=== PATIENT | male | born 1995 | race Caucasian/White ===

== ENCOUNTER 2016-07-24 22:46 | Emergency (ER) | payer SELFPAY ==
[~2016-07-24] VITALS: Ht 182.9 cm; Wt 106.9 kg
[~2016-07-24 22:46] MED LIST: BACTRIM,SEPT1 TABLET PO; BENADRYL50 MG PO; CATAPRES0.1 MG PO; CIPROFLOXACIN H10 ML LEFT EYE; CLEOCIN150 MG PO; CLEOCIN300 MG PO; CLONIDINE HCL0.1 MG PO; DOXYCYCLINE HY100 MG PO; ENDOCET 5-3251 EACH PO; FLEXERIL5 MG PO; HYDROXYZINE PAM25 MG PO; IBUPROFEN800 MG PO; KEFLEX500 MG PO; LORATADINE10 M2 PO; MUPIROCIN22 GM TP; NAPHCON-A EYE D15 ML BOTH EYES; NAPROSYN500 MG PO; NICOTINE PATCH1 EAC2 TD; NOHOMEMEDS; PEN-VEE K,VEET500 MG PO; PEPCID20 MG PO; PERCOCET 5/31 TABLET PO; PREDNISONE20 MG PO; ULTRAM50 MG PO; VALTREX1000 MG PO; VYVANSE50 MG PO
[2016-07-24 22:55] VITALS: BP 143/79
[2016-07-24] MEDS ORDERED: TOBREX5 ML BOTH EYES (23:27)
== END 2016-07-24 23:54 | disposition home or self-care (01) ==
LOC: RME 22:46 → EME 22:46 → RME 23:54
DX: H10.9 Unspecified conjunctivitis (principal)
CPT/HCPCS: 99281; 99283

== ENCOUNTER 2016-09-18 13:56 | Emergency (ER) | payer SELFPAY ==
[~2016-09-18] VITALS: Ht 182.9 cm; Wt 108.8 kg
[~2016-09-18 13:56] MED LIST changes: +TOBREX5 ML BOTH EYES
[2016-09-18] MEDS ORDERED: AMOXICILLIN875 MG PO (14:58)
[2016-09-18 15:13] VITALS: BP 135/77
== END 2016-09-18 15:17 | disposition home or self-care (01) ==
LOC: EME 13:56
DX: K08.89 Other specified disorders of teeth and supporting structures (principal); J02.9 Acute pharyngitis, unspecified; H66.93 Otitis media, unspecified, bilateral; Z87.891 Personal history of nicotine dependence
CPT/HCPCS: 99281; 99284

== ENCOUNTER 2016-09-20 14:30 | Emergency (ER) | payer SELFPAY ==
[~2016-09-20] VITALS: Ht 182.9 cm; Wt 108.0 kg
[~2016-09-20 14:30] MED LIST changes: +AMOXICILLIN875 MG PO
[2016-09-20] MEDS ORDERED: ZITHROMAX500 MG PO (18:35)
[2016-09-20] MEDS ORDERED: PROVENTIL,2.5 MG/3 M IH (18:35)
[2016-09-20] MEDS ORDERED: PREDNISONE20 MG PO (18:35)
[2016-09-20 19:13] VITALS: BP 122/70
== END 2016-09-20 19:14 | disposition home or self-care (01) ==
LOC: EME 14:30 → EXP 14:30
DX: J02.0 Streptococcal pharyngitis (principal); J20.9 Acute bronchitis, unspecified; R42 Dizziness and giddiness; F17.200 Nicotine dependence, unspecified, uncomplicated; Z71.6 Tobacco abuse counseling; Z86.14 Personal history of Methicillin resistant Staphylococcus aureus infection
CPT/HCPCS: 94640; 99281; 99283; J7512

== ENCOUNTER 2016-12-27 05:52 | Emergency (ER) | payer SELFPAY ==
[~2016-12-27] VITALS: Ht 182.9 cm; Wt 113.4 kg
[~2016-12-27 05:52] MED LIST changes: +PROVENTIL,2.5 MG/3 M IH; +ZITHROMAX500 MG PO
[2016-12-27 06:39] LABS: EOSINOPHIL (%) 3.8 % (0-5); EOSINOPHIL COUNT 0.3 K/uL (0-0.3); HEMATOCRIT 44.9 % (38.0-50.0); IMMATURE GRANULOCYTE (%) 0.2 % (0.0-0.7); INSTRUMENT ABS NEUTROPHIL CT 3.5 K/uL; LYMPHOCYTE COUNT 2.3 K/uL (1.0-2.8); MCH 29.9 PG (29.0-34.0); MCHC 33.9 G/DL (30.0-36.0); MCV 88.2 FL (86-99); MONOCYTE (%) 8.1 % (3-12); MONOCYTE COUNT 0.5 K/uL (0-0.8); NEUTROPHIL (%) 52.9 % (45-76); NEUTROPHIL COUNT 3.5 K/uL (1.8-6.4); PLATELET COUNT 207 K/uL (156-360); RBC DIS.WIDTH-CV 12.7 % (11.8-14.6); RBC DIS.WIDTH-SD 40.9 % (39-53); RED BLOOD COUNT 5.09 M/uL (4.00-5.50); WHITE BLOOD COUNT 6.7 K/uL (4.1-10.2)
[2016-12-27 07:09] LABS: ANION GAP 7 MEQ/L (2-14); CHLORIDE 107 MEQ/L (99-109); GFR ESTIMATE (CALCULATED) > 59 mL/min/; GLUCOSE 105 mg/dL (70-99); SAMPLE HEMOLYSIS CHECK 0; SAMPLE ICTERIC CHECK 0; SAMPLE LIPEMIA CHECK 0; SODIUM 139 MEQ/L (136-147); UREA NITROGEN (BUN) 16 mg/dL (9-23)
[2016-12-27] MEDS ORDERED: ZOFRAN ODT4 MG PO (07:23)
[2016-12-27] MEDS ORDERED: IMODIUM MS REL1 EACH PO (07:23)
[2016-12-27] MEDS ORDERED: TOBREX5 ML BOTH EYES (07:23)
[2016-12-27] MEDS ORDERED: BENTYL20 MG PO (07:23)
[2016-12-27 07:53] VITALS: BP 120/70
== END 2016-12-27 07:54 | disposition home or self-care (01) ==
LOC: EME 05:52
PROVIDERS: Emergency Medicine
DX: K52.9 Noninfective gastroenteritis and colitis, unspecified (principal); H10.9 Unspecified conjunctivitis; F17.200 Nicotine dependence, unspecified, uncomplicated
CPT/HCPCS: 80048; 85025; 99281; 99284; J1885; J2405; J7030

== ENCOUNTER 2017-06-05 15:15 | Emergency (ER) | payer OTHER ==
[~2017-06-05] VITALS: Ht 182.9 cm; Wt 114.6 kg
[~2017-06-05 15:15] MED LIST changes: +BENTYL20 MG PO; +IMODIUM MS REL1 EACH PO; +ZOFRAN ODT4 MG PO
[2017-06-05] MEDS ORDERED: PREDNISONE50 MG PO (16:31)
[2017-06-05 17:05] VITALS: BP 139/79
== END 2017-06-05 17:06 | disposition home or self-care (01) ==
LOC: EME 15:15
DX: M54.5 Low back pain (principal); V49.40XA Driver injured in collision with unspecified motor vehicles in traffic accident, initial encounter; F17.200 Nicotine dependence, unspecified, uncomplicated
CPT/HCPCS: 99281; 99283